=== PATIENT | female | born 1950 | race Caucasian/White ===

== ENCOUNTER 2018-01-29 15:19 | Outpatient (CLI) | payer BC | END 2018-01-29 15:20 | disposition home or self-care (01) | LOC: BICMAMMO 15:19 | PROVIDERS: ATTEND Obstetrics & Gynecology | DX: Z12.31 Encounter for screening mammogram for malignant neoplasm of breast (principal); Z80.3 Family history of malignant neoplasm of breast | CPT/HCPCS: 77063; 77067 ==

== ENCOUNTER 2019-01-17 15:16 | Outpatient (CLI) | payer BC ==
--- NOTE | 2019-01-17 15:50 | MMO ---
Bilateral MAMMO Bilat Screen [facility]. CLINICAL HISTORY: Patient is 68 years old and is seen for screening. The patient has the following family history of breast cancer: mother, at age 84. The patient has no personal history of cancer. The patient has a history of left Excisional Biopsy in 1985 - fibroadenoma. VIEWS: The views performed were: bilateral craniocaudal with tomosynthesis and bilateral mediolateral oblique with tomosynthesis. FILMS COMPARED: The present examination has been compared to prior imaging studies performed at [facility] on 01/30/2015, 02/01/2016, 01/25/2017 and 01/29/2018. MAMMOGRAM FINDINGS: There are scattered fibroglandular densities. There are no suspicious masses, suspicious calcifications, or new areas of architectural distortion. IMPRESSION: THERE IS NO MAMMOGRAPHIC EVIDENCE OF MALIGNANCY. A ROUTINE FOLLOW-UP MAMMOGRAM IN 1 YEAR IS RECOMMENDED. THE RESULTS OF THIS EXAM WERE SENT TO THE PATIENT. ACR BI-RADS Category 1 - Negative MAMMOGRAPHY NOTE: 1. A negative mammogram report should not delay a biopsy if a dominant of clinically suspicious mass is present. 2. Approximately 10% to 15% of breast cancers are not detected by mammography. 3. Adenosis and dense breasts may obscure an underlying neoplasm. Reported by: CATHI ANDERS MD Electonically Signed: [id number]
== END 2019-01-17 15:17 | disposition home or self-care (01) ==
LOC: BICMAMMO 15:16
PROVIDERS: ATTEND Obstetrics & Gynecology
DX: Z12.31 Encounter for screening mammogram for malignant neoplasm of breast (principal); Z80.3 Family history of malignant neoplasm of breast
CPT/HCPCS: 77063; 77067

== ENCOUNTER 2020-01-20 09:33 | Outpatient (CLI) | payer BC, OTHER ==
--- NOTE | 2020-01-20 11:39 | MMO ---
Bilateral MAMMO Bilat Screen [facility]. CLINICAL HISTORY: Patient is 69 years old and is seen for screening. The patient has the following family history of breast cancer: mother, at age 84. The patient has no personal history of cancer. The patient has a history of left Excisional Biopsy in 1985 - fibroadenoma. VIEWS: The views performed were: bilateral craniocaudal with tomosynthesis and bilateral mediolateral oblique with tomosynthesis. FILMS COMPARED: The present examination has been compared to prior imaging studies performed at [facility] on 02/01/2016, 01/25/2017, 01/29/2018 and 01/17/2019. This study has been interpreted with the assistance of computer-aided detection. MAMMOGRAM FINDINGS: There are scattered fibroglandular densities. There are no suspicious masses, suspicious calcifications, or new areas of architectural distortion. IMPRESSION: THERE IS NO MAMMOGRAPHIC EVIDENCE OF MALIGNANCY. A ROUTINE FOLLOW-UP MAMMOGRAM IN 1 YEAR IS RECOMMENDED. THE RESULTS OF THIS EXAM WERE SENT TO THE PATIENT. ACR BI-RADS Category 1 - Negative MAMMOGRAPHY NOTE: 1. A negative mammogram report should not delay a biopsy if a dominant of clinically suspicious mass is present. 2. Approximately 10% to 15% of breast cancers are not detected by mammography. 3. Adenosis and dense breasts may obscure an underlying neoplasm. Reported by: BRE LI MD Electonically Signed: [id number]
== END 2020-01-20 09:34 | disposition home or self-care (01) ==
LOC: BICMAMMO 09:33
PROVIDERS: ATTEND Obstetrics & Gynecology
DX: Z12.31 Encounter for screening mammogram for malignant neoplasm of breast (principal); Z80.3 Family history of malignant neoplasm of breast
CPT/HCPCS: 77063; 77067

== ENCOUNTER 2020-01-20 10:01 | Outpatient (CLI) | payer BC ==
--- NOTE | 2020-01-20 12:50 | ULT ---
THYROID ULTRASOUND: INDICATION: Followup thyroid nodules. COMPARISON: Comparison is made to thyroid ultrasound performed 06/27/2017. FINDINGS: Both lobes of the thyroid are homogeneous and have normal appearance. The right lobe measures 4.5 x 1.7 x 1.6. The let lobe measures 4.8 x 1.5 x 1.7. Multiple bilateral nodules are again noted. In the superior right lobe there is 1.0 cm hypoechoic somewhat complex nodule which appears stable. In the inferior right lobe there is a 6-9 mm oblong-shaped hypoechoic nodule which appears stable. In the left lobe there is a 6-10 mm nodule in the inferior left lobe which is hypoechoic and irregula r shape. This is stable. There is a smaller nodule in the superior left lobe measuring 5-7 mL which is stable. On today's exam, the tiny 4-5 mm nodule in the inferior left lobe near the isthmus and another 4-6 mm nodule in the isthmus is seen. IMPRESSION: The previously noted nodules in both lobes of the thyroid are stable. Two other tiny nodules are see n in the isthmus today as described above. Recommend continued annual followup. POS: JARRETT
== END 2020-01-20 10:02 | disposition home or self-care (01) ==
LOC: BICULT 10:01
PROVIDERS: ATTEND Internal Medicine Endocrinology, Diabetes & Metabolism
DX: E04.8 Other specified nontoxic goiter (principal); E04.2 Nontoxic multinodular goiter
CPT/HCPCS: 76536

== ENCOUNTER 2021-09-23 08:45 | Outpatient (CLI) | payer BC | END 2021-09-23 08:46 | disposition home or self-care (01) | LOC: PET 08:45 | PROVIDERS: ATTEND Family Medicine | DX: R91.1 Solitary pulmonary nodule (principal) | CPT/HCPCS: 78815; A9552 ==

== ENCOUNTER 2023-04-14 09:03 | Outpatient (CLI) | payer BC | END 2023-04-14 09:04 | disposition home or self-care (01) | LOC: ULT 09:03 | PROVIDERS: ATTEND Internal Medicine Gastroenterology | DX: K59.00 Constipation, unspecified (principal); K30 Functional dyspepsia; R10.11 Right upper quadrant pain; R14.0 Abdominal distension (gaseous) | CPT/HCPCS: 76705 ==

== ENCOUNTER 2023-07-12 13:00 | Outpatient (CLI) | payer BC ==
[2023-07-12] MEDS ORDERED: Sterile Water 10 ML ONE (14:29)
[2023-07-12] MEDS ORDERED: Bacteriostatic Normal Saline 30 ML VIAL ONE (14:30)
[2023-07-12] MEDS ORDERED: Sincalide 5 MCG VIAL ONE (14:30)
== END 2023-07-12 13:01 | disposition home or self-care (01) ==
LOC: NM 13:00
PROVIDERS: ATTEND Internal Medicine Gastroenterology
DX: R10.11 Right upper quadrant pain (principal); K21.00 Gastro-esophageal reflux disease with esophagitis, without bleeding; R10.13 Epigastric pain; R19.4 Change in bowel habit
CPT/HCPCS: 78227; A9537; J2805

== ENCOUNTER 2024-03-26 15:16 | Outpatient (CLI) | payer BC | END 2024-03-26 15:17 | disposition home or self-care (01) | LOC: SCSRAD 15:16 | PROVIDERS: ATTEND Family Medicine | DX: R50.9 Fever, unspecified (principal) | CPT/HCPCS: 71046 ==

== ENCOUNTER 2024-04-09 09:49 | Outpatient (CLI) | payer BC | END 2024-04-09 09:50 | disposition home or self-care (01) | LOC: SCSRAD 09:49 | PROVIDERS: ATTEND Family Medicine | DX: R50.9 Fever, unspecified (principal); J18.9 Pneumonia, unspecified organism | CPT/HCPCS: 71046 ==